=== PATIENT | male | born 1950 | race Caucasian/White ===

== ENCOUNTER 2017-07-06 09:56 | Day surgery (SDC) | payer MEDICARE, MEDICAID ==
[~2017-07-06] VITALS: Ht 177.8 cm; Wt 150.5 kg
[2017-07-06] VITALS (13 sets, daily range): BP systolic 112–148; BP diastolic 58–81
[~2017-07-06 09:56] MED LIST: ALBU18HF2 INH; AMLO10TA PO; BENA40TA2 PO; FURO-149 PO; GABA-532 PO; INSU100V36 SQ; LANTUS SQ; METF1000 PO; PROM5SYR2 PO; TRAM50TA2 PO; WARF6TAB PO
[2017-07-06] MEDS ORDERED: normal saline 1000ml 1,000 ML IV SCH (10:30)
[2017-07-06] MEDS ORDERED: fentaNYL/PF 50MCG/1 ML 2ML syringe IV ONE (10:30)
[2017-07-06] MEDS ORDERED: MIDAZolam 5mg/ml 2ml vial IV ONE (10:30)
[2017-07-06] MEDS ORDERED: CYCL-1 PO (11:37)
[2017-07-06] MEDS ORDERED: AMIO200T57 PO (11:37)
[2017-07-06] MEDS ORDERED: COU7.5T PO (11:37)
[2017-07-06] MEDS ORDERED: COU3T PO ×2 (11:37)
[2017-07-06] MEDS ORDERED: IBUP-1984 PO (11:38)
== END 2017-07-06 14:10 | disposition home or self-care (01) ==
LOC: SSTAY O 09:56
PROVIDERS: ATTEND Internal Medicine Interventional Cardiology
DX: I48.0 Paroxysmal atrial fibrillation (principal); I48.3 Typical atrial flutter; I10 Essential (primary) hypertension; E66.01 Morbid (severe) obesity due to excess calories; E11.59 Type 2 diabetes mellitus with other circulatory complications; M19.90 Unspecified osteoarthritis, unspecified site; B19.10 Unspecified viral hepatitis B without hepatic coma; E78.5 Hyperlipidemia, unspecified; Z79.4 Long term (current) use of insulin; Z79.1 Long term (current) use of non-steroidal anti-inflammatories (NSAID); Z79.01 Long term (current) use of anticoagulants; Z86.79 Personal history of other diseases of the circulatory system; G47.33 Obstructive sleep apnea (adult) (pediatric); Z79.891 Long term (current) use of opiate analgesic; Z68.42 Body mass index [BMI] 45.0-49.9, adult; Z79.899 Other long term (current) drug therapy
CPT/HCPCS: 82948; 92960; 93005; J2250; J3010; J7030; A4620

== ENCOUNTER 2018-03-21 09:30 | Inpatient (IN) | payer MEDICARE, MEDICAID | END 2018-03-29 15:45 | LOC: ER 09:30 → ED HOLD 12:18 → SUR 3N 16:25 | PROC: 0YB90ZZ Excision of Right Lower Extremity, Open Approach (ICD-10-PCS; principal; 2018-03-24 14:59) | DX: A41.9 Sepsis, unspecified organism (principal); L03.115 Cellulitis of right lower limb; N17.9 Acute kidney failure, unspecified; E11.9 Type 2 diabetes mellitus without complications; I11.0 Hypertensive heart disease with heart failure; I50.9 Heart failure, unspecified ==

== ENCOUNTER 2022-07-23 13:14 | Emergency (ER) | payer BC, MEDICAID ==
[~2022-07-23] VITALS: Ht 177.8 cm; Wt 131.8 kg
[~2022-07-23 13:14] MED LIST changes: -ALBU18HF2 INH; +ASCO500C18 PO; -BENA40TA2 PO; +BENA40TA73 PO; +COU3T PO; +COU7.5T PO; +CYCL-1 PO; -FURO-149 PO; +GARL1TAB2 PO; +HUM7525 SQ; +IBUP-1984 PO; -INSU100V36 SQ; -PROM5SYR2 PO; +VITA-288 PO; -WARF6TAB PO
[2022-07-23 13:22] VITALS: BP 192/69
[2022-07-23 13:44] LABS: BASOPHILS % (AUTO) 0.4 % (0-1); EOSINOPHILS # (AUTO) 0.3 X10'3 (0-0.9); EOSINOPHILS % (AUTO) 2.9 % (0-6); HEMATOCRIT 41.7 % (42.0-52.0); HEMOGLOBIN 13.9 g/dl (14.0-17.9); LYMPHOCYTES # (AUTO) 1.6 X10'3 (1.1-4.8); LYMPHOCYTES % (AUTO) 16.8 % (21-51); MEAN CORPUSCULAR HEMOGLOBIN 28.2 PG (27.0-31.0); MEAN CORPUSCULAR HGB CONC 33.4 g/dL (33.0-36.5); MEAN CORPUSCULAR VOLUME 84.6 FL (78-98); MEAN PLATELET VOLUME 7.7 FL (7.4-10.4); MONOCYTES # (AUTO) 0.7 X10'3 (0-0.9); MONOCYTES % (AUTO) 7.6 % (2-12); NEUTROPHILS # (AUTO) 6.7 X10'3 (1.8-7.7); NEUTROPHILS % (AUTO) 72.3 % (42-75); PLATELET COUNT 187 X10'3 (140-440); RED BLOOD COUNT 4.93 X10'6 (4.70-6.10); RED CELL DISTRIBUTION WIDTH 14.5 % (11.5-14.5); WHITE BLOOD COUNT 9.3 X10'3 (4.5-11.0)
[2022-07-23 13:56] LABS: ALANINE AMINOTRANSFERASE 22 U/L (12-78); ALBUMIN 3.3 G/DL (3.4-5.0); ALKALINE PHOSPHATASE 92 IU/L (46-116); ANION GAP 4 (8-16); ASPARTATE AMINO TRANSFERASE 23 U/L (10-37); BILIRUBIN,TOTAL 0.6 MG/DL (0.1-1.0); BLOOD UREA NITROGEN 25 MG/DL (7-18); CALCIUM 8.6 MG/DL (8.5-10.1); CHLORIDE 107 MMOL/L (99-107); CREATININE 1.19 MG/DL (0.60-1.10); GLUCOSE 138 MG/DL (70-104); POTASSIUM 4.3 MMOL/L (3.5-5.1); SODIUM 138 MMOL/L (135-145); TOTAL CARBON DIOXIDE 27.1 MMOL/L (24-32); TOTAL PROTEIN 6.5 G/DL (6.4-8.2); eGFR 61 ML/MIN
[2022-07-23] MEDS ORDERED: ALBU8HFA PO (15:33)
== END 2022-07-23 17:12 | disposition home or self-care (01) ==
LOC: ER 13:14
DX: J06.9 Acute upper respiratory infection, unspecified (principal); R09.81 Nasal congestion; I11.0 Hypertensive heart disease with heart failure; I50.9 Heart failure, unspecified
CPT/HCPCS: 36415; 71045; 80053; 83880; 84484; 85025; 93005; 99285

== ENCOUNTER 2025-02-26 12:20 | Emergency (ER) | payer BC, OTHER ==
[~2025-02-26] VITALS: Ht 177.8 cm; Wt 127.0 kg
[2025-02-26 12:37] VITALS: BP 99/52; PULSE 68; RESP 16; O2SAT 97
--- NOTE | 2025-02-26 13:03 | RADIOLOGY REPORT ---
INDICATION: WRIST PAIN x TECHNIQUE: 3 views right wrist were obtained. COMPARISON: None FINDINGS: There is no evidence of acute fracture or dislocation.The visualized joint space is well maintained.The alignment is anatomical.The surrounding soft tissues are unremarkable.There is no bony lesions or erosions identified. IMPRESSION: NO fracture
--- NOTE | 2025-02-26 13:38 | Physician Documentation ---
History of Present Illness ~ Chief Complaint: Wrist pain Stated Complaint: R WRIST PAIN S/P FALL Time Seen by MD: 12:56 Primary Medical Doctor: [facility] This is a 74-year-old male who presents with right posterior wrist pain after a ground level trip and fall two days prior, patient reports no other injuries or acute symptoms or concerns. Patient reports no numbness or tingling to right hand or fingers. Tetanus within 5 years: Yes Medication Reconciliation Allergies: Coded Allergies: No Known Allergies (Unverified , 02/26/25) Scheduled Amlodipine Besylate (Amlodipine Besylate), 1 TABLET PO HS, (Reported) Ascorbic Acid (Vitamin C), 1 CAP PO DAILY, (Reported) Benazepril Hcl* (Lotensin*), 1 TAB PO BID, (Reported) Gabapentin (Gabapentin), 2 CAP PO HS, (Reported) Garlic (Garlic), 1 TAB PO DAILY, (Reported) Insulin Aspart (Novolog), 0 SQ BID, (Reported) Insulin Glargine,Hum.rec.anlog* (Lantus*), 35 UNITS SQ BID, (Reported) Metformin Hcl* (Glucophage*), 1 TAB PO Q12H, (Reported) Tramadol HCl (Tramadol HCl), 2 TABLET PO BID, (Reported) Vitamin E Mixed (Vitamin E), 1 CAP PO DAILY, (Reported) Warfarin Sodium* (Coumadin*), 2 TAB PO Q48H, (Reported) Warfarin Sodium* (Coumadin*), 7 MG PO Q48H, (Reported) Scheduled PRN Cyclobenzaprine* (Cyclobenzaprine*), 1 TABLET PO Q12H PRN for muscle spasms, (Reported) Ibuprofen* (Motrin*), 600 MG PO Q8H PRN for pain, (Reported) Past Medical History Past Medical History: No Pertinent History, Congestive Heart Failure, Hypertension, Myocardial Infarction Past Surgical History: noncontributory Patient History: Patient reports no known family medical history. Alcohol Use: Occasionally Drug Use: none Lives In: Home Review of Systems ROS As stated above in the HPI, otherwise all systems are reviewed and negative. Physical Exam Vital Signs: Temperature: 97.2, Source: Temporal, Heart Rate: 68, Respiratory Rate: 16, BP: 99/52, Pulse Oximetry: 97, Weight: 127.000 Oxygen Flow Rate: 0 Physical Exam VITALS: Reviewed and as above. GENERAL: Alert, nontoxic appearing, no apparent distress. RESPIRATORY: No increased work of breathing, no respiratory distress, speaking in full clear sentences CV: Brisk capillary refill to fingers of right hand MUSCULOSKELETAL: Right posterior wrist mildly tender to palpation, no anterior, medial, or lateral tenderness to palpation, no anatomical snuffbox tenderness. Range of motion and strength intact to fingers of right hand. SKIN: Mild erythema without ecchymosis to posterior right wrist. NEURO: Sensation intact to right hand Progress Results/Orders Results/Orders Orders - JOHANNA REESE [facility]ER Ortho Orders (02/26/25 ) Vital Signs 02/26/25 02/26/25 12:37 13:52 Temp 97.2 97.2 Pulse 68 Resp 16 B/P (MAP) 99/52 Pulse Ox 97 O2 Flow Rate 0 EKG/XRAY/CT/US/VASC/MRI Bone/Soft Tissue X-Ray (Ext.) : Additional Comment Exam: WRIST, COMPLETE (3VW MIN) INDICATION: WRIST PAIN x TECHNIQUE: 3 views right wrist were obtained. COMPARISON: None FINDINGS: There is no evidence of acute fracture or dislocation.The visualized joint space is well maintained.The alignment is anatomical.The surrounding soft tissues are unremarkable.There is no bony lesions or erosions identified. IMPRESSION: NO fracture Electronically Signed by:JAIRO BANDA MD Date & Time: 02/26/25 130 Dictated by: JAIRO BANDA MD Dictation date and time: 02/26/25 1301 I have reviewed and agree with the radiology report. I have reviewed and interpreted the imaging as: No fracture or dislocation Medical Decision Making Additional information obtaine: N/A Findings This 74-year-old male presented with right posterior wrist pain two days after a mechanical ground level trip and fall with no other injuries reported including no head strike or loss of consciousness. Patient is otherwise well-appearing and imaging did not demonstrate evidence of fracture or dislocation. Patient will be placed in wrist splint and sling for comfort as he reports having the wrist pain low increase his pain, treatment will be with rest, ice, compression, and elevation. Patient reports pain is well managed with previously prescribed pain medications. Additionally reassuring the limb is neurovascularly intact. Patient is appropriate for outpatient follow up. Patient provided follow up instructions, return to care precautions, and home care instructions which he verbalized understanding of. General Diff Dx:Considerations: Include: Abrasion, Contusion, Fracture, Hematoma, Laceration, Neurovascular injury, Open fracture, Sprain Shoulder Diff Dx:Consideration: Unlikely: AC separation, Adhesive capsulitis, Arthritis, Bicipital tendonitis, Calcific tendonitis, Cervical disc disease, Contusion, Dislocation, Fracture-humerus, Fracture-scapula, Fracture-clavicle, GB disease, Hematoma, Impingement syndrome, Myocardial infarction, Neurovascular injury, Open fracture-humerus, Open fracture-scapula, Open fracture-clavicle, Rotator cuff injury, SC dislocatoin, Sprain, Subacromial bursitis, Other Elbow Diff Dx:Considerations: Unlikely: Abrasion, Arthritis, Contustion, DJD, Fracture-humerus, Fracture-radial head, Fracture-radius, Fracture-ulna, Gout, Hematoma, Laceration, Neurovascular injury, Olecranon bursitis, Open fracture, Osteomyelitis, Radial head subluxation, Rheumatoid arthritis, Septic, Sprain, Ulcer, Other Wrist Diff Dx:Considerations: Include: Abrasion, Arthritis, DJD, Gout, Rheumatoid, Carpal tunnel snydrome, Contusion, Dislocation, Fracture-carpal, Fracture-radius, Fracture-ulna, Ganglion, Laceration, Neurovascular injury Hand Diff Dx:Considerations: Include: Felon, Fracture-carpal, Fracture- metacarpal, Fracture-phalynx, Fracture-radius, Gout, Hematoma, Neurovascular injury, Septic, Sprain Finger Diff Dx:Considerations: Unlikely: Abrasion, Cellulitis, Contusion, Dislocation, Fracture, Hematoma, Laceration, Neurovascular injury, Open fracture, Subungual hematoma, Other Departure Time of Disposition: 13:37 Disposition: 01 HOME / SELF CARE / HOMELESS Impression: Primary Impression: Wrist joint pain Qualified Codes: M25.531 - Pain in right wrist Condition: Improved Discharge Instructions: RICE Therapy for Routine Care of Injuries, Easy-to-Elisha d, Wrist Pain, Adult Additional Instructions: Wear the wrist splint for comfort. Please follow up with your primary care provider in the next few days. Please return to the emergency department for any new or worsening concerning symptoms. Referrals: NO PRIMARY CARE PROVIDER (PCP) Education Educated: Patient Educated regarding: diagnosis, treatment, prognosis, need for follow up Signature Scribe Signature: No scribe Attestation: The note accurately reflects work and decisions made by me.SAMUEL Willard 02/26/25 20:34 JOHANNA REESE Feb 26, 2025 13:38
[2025-02-26 13:52] VITALS: TEMP 97.2
== END 2025-02-26 13:53 | disposition home or self-care (01) ==
LOC: ER 12:21
DX: M25.531 Pain in right wrist (principal); Z79.4 Long term (current) use of insulin; I11.0 Hypertensive heart disease with heart failure; I50.9 Heart failure, unspecified; I25.2 Old myocardial infarction; Z79.01 Long term (current) use of anticoagulants; Z79.899 Other long term (current) drug therapy; Z72.89 Other problems related to lifestyle; W01.0XXA Fall on same level from slipping, tripping and stumbling without subsequent striking against object, initial encounter; Y93.89 Activity, other specified; Y92.89 Other specified places as the place of occurrence of the external cause; Y99.8 Other external cause status
CPT/HCPCS: 29125; 73110; 99283; A4565